=== PATIENT | female | born 1945 | race Caucasian/White ===

== ENCOUNTER 2016-07-05 07:42 | Emergency (ER) | payer MEDICARE ==
--- NOTE | 2016-07-05 08:02 | EDM.PDOC ---
ED HPI Trauma - General Chief Complaint: Upper Extremity Injury/Pain Stated Complaint: WRIST PAIN Time Seen by Provider: 07/05/16 07:57 - History of Present Illness INITIAL COMMENTS - FREE TEXT/NARRATIVE: HISTORY AND PHYSICAL: History of present illness: Patient is 70-year-old white female titrates her left hand/wrist injury she states several days prior she was holding her dog and restrain him from aggressive behavior didn't think much about it she subsequently developed swelling pain she is increased pain with movement of her thumb she denies any direct, or fall denies any history of known arthropathies. Review of systems: As per history of present illness and below otherwise all systems reviewed and negative. Past medical history: As per history of present illness and as reviewed below otherwise noncontributory. Surgical history: As per history of present illness and as reviewed below otherwise noncontributory. Social history: No reported history of drug or alcohol abuse. Family history: As per history of present illness and as reviewed below otherwise noncontributory. Physical exam: HEENT: Atraumatic, normocephalic, pupils reactive, negative for conjunctival pallor or scleral icterus, mucous membranes moist, throat clear, neck supple, nontender, trachea midline. Lungs: Clear to auscultation, breath sounds equal bilaterally, chest nontender. Heart: S1S2, regular, negative for clicks, rubs, or JVD. Abdomen: Soft, nondistended, nontender. Negative for masses or hepatosplenomegaly. Negative for costovertebral tenderness. Pelvis: Stable nontender. Genitourinary: Deferred. Rectal: Deferred. Extremities: Tenderness and swelling over the dorsal aspect of her wrist and she does have a positive Alejandra's test Neuro: Awake, alert, oriented. Cranial nerves II through XII unremarkable. Cerebellum unremarkable. Motor and sensory unremarkable throughout. Exam nonfocal. Diagnostics: X-ray left hand Therapeutics: Velcro thumb spica Impression: #1 probable de Quervain's tenosynovitis Definitive disposition and diagnosis as appropriate pending reevaluation and review of above. Allergies/ADRs: Allergies celecoxib [From Celebrex] Allergy (Verified 07/05/16 07:57) Hives Tetracyclines Allergy (Verified 07/05/16 07:57) Hives Review of Systems - Review of Systems Review Of Systems: ROS reveals no pertinent complaints other than HPI. Trauma Exam - Physical Exam Exam: See Below (See dictation) Course - Vital Signs Last Recorded V/S: Last Vital Signs Temp 36.1 C 07/05/16 07:53 Pulse 70 07/05/16 07:53 Resp 18 07/05/16 07:53 BP 121/71 07/05/16 07:53 Pulse Ox 96 07/05/16 07:53 Departure - Departure Time of Disposition: 08:01 Disposition: Home, Self-Care 01 Condition: good Clinical Impression: De Quervain's tenosynovitis Forms: ED Department Discharge Additional Instructions: The following information is given to patients seen in the emergency department who are being discharged to home. This information is to outline your options for follow-up care. We provide all patients seen in our emergency department with a follow-up referral. The need for follow-up, as well as the timing and circumstances, are variable depending upon the specifics of your emergency department visit. If you don't have a primary care physician on staff, we will provide you with a referral. We always advise you to contact your personal physician following an emergency department visit to inform them of the circumstance of the visit and for follow-up with them and/or the need for any referrals to a consulting specialist. The emergency department will also refer you to a specialist when appropriate. This referral assures that you have the opportunity for followup care with a specialist. All of these measure are taken in an effort to provide you with optimal care, which includes your followup. Under all circumstances we always encourage you to contact your private physician who remains a resource for coordinating your care. When calling for followup care, please make the office aware that this follow-up is from your recent emergency room visit. If for any reason you are refused follow-up, please contact the [facility] emergency department at and asked to speak to the emergency department charge nurse. [facility] specialty [facility]Pl[facility] [address] [place] [address] [phone] Velcro splint as directed Motrin or Tylenol as directed followup with private medical doctor and/or hand surgery about as discussed return as needed as discussed
[2016-07-05 09:08] VITALS: BP 145/67
--- NOTE | 2016-07-05 16:05 | CR ---
EXAM DATE: 07/05/16 PATIENT'S AGE: 70 Patient: LOCO VELASCO Facility: [place], [place] Site . Site : 1945 Study: XRay Extremity Left HAND [id number]/26/2017 8:25:12 AM Ordering Physician: Eleuterio Garcia Final Report: Indication : Injury. Pain and swelling. FINDINGS: Two views of the left hand show no evidence of acute fracture or dislocation. Degenerative changes of most of the interphalangeal joints. No other bony or soft tissue abnormalities identified. Dictated by Lalo Vázquez MD @ 07/05/2016 8:43:07 AM Dictated by: Lalo Vázquez MD @ 07/05/2016 08:43:19 (Electronic Signature) Report Signed by Proxy and Original Signed Document filed in the Medical Record. MTDD
--- NOTE | 2016-07-05 16:06 | CR ---
EXAM DATE: 07/05/16 PATIENT'S AGE: 70 Patient: LOCO VELASCO Facility: [place], [place] Site . Site : 1945 Study: XRay Extremity Left [id number]/26/2017 8:25:48 AM Ordering Physician: Eleuterio Garcia Final Report: INDICATION: INJURY 4 DAYS AGO, PAIN AND SWELLING FINDINGS: Two views of the left wrist show no evidence of acute fracture or dislocation. Possible erosion in the triquetrum. No other bony or soft tissue abnormalities identified. Dictated by Lalo Vázquez MD @ 07/05/2016 8:48:18 AM Dictated by: Lalo Vázquez MD @ 07/05/2016 08:48:26 (Electronic Signature) Report Signed by Proxy and Original Signed Document filed in the Medical Record. MTDD
== END 2016-07-05 09:06 | disposition home or self-care (01) ==
LOC: MW.ED 07:42
DX: M65.4 Radial styloid tenosynovitis [de Quervain] (principal); Z88.1 Allergy status to other antibiotic agents; Z88.8 Allergy status to other drugs, medicaments and biological substances
CPT/HCPCS: 73100; 73120; 99283; L3908; 99282